=== PATIENT | male | born 1995 | race African-American/Black ===

== ENCOUNTER 2018-06-01 23:34 | Emergency (ER) | payer SELFPAY ==
--- NOTE | 2018-06-02 00:56 | ED ---
Dizziness - HPI Summary HPI Summary: 22 year old M presenting to [facility] with a chief complaint of dizziness since yesterday evening. Symptoms aggravated by nothing. Symptoms alleviated by nothing. Patient reports blurred vision and lightheadedness. Patient denies chest pain. He also notes shortness of breath and chest palpitations earlier that has since resolved. He additionally complains of hypertension, headache with pain the back of his eyes since four days ago. Patient has hx ADHD. He was recently prescribed Concerta. At his last visit to his psychiatrist's office, psychiatrist noted patient had hypertension. He was instructed to follow up with [facility]. At his follow-up appointment, [facility] nurse gave patient a blood pressure cuff to monitor his blood pressure. He has been monitoring his blood pressure every day this past week. He saw his psychiatrist yesterday, but psychiatrist did not change his medication dosages. - History Of Current Complaint Chief Complaint: EDDizziness Stated Complaint: LIGHT HEADED/NAUSEOUS/POSS HBP Time Seen by Provider: 06/02/18 00:41 Hx Obtained From: Patient Onset/Duration: Still Present, Suddenly Timing: Constant Aggravating Factor(s): Nothing Alleviating Factor(s): Nothing Associated Signs And Symptoms: Positive: Other:. Negative: Chest Pain - shortness of breath and chest palpitations earlier that has since resolved. He additionally complains of hypertension, headache with pain the back of his eyes since four days ago. - Allergies/Home Medications Allergies/Adverse Reactions: Allergies Allergy/AdvReac Type Severity Reaction Status Date / Time No Known Allergies Allergy Verified 06/01/18 23:42 Home Medications: Home Medications Methylphenidate HCl [Concerta] 27 mg PO DAILY 06/02/18 [History Confirmed ] PMH/Surg Hx/FS Hx/Imm Hx Previously Healthy: No Endocrine/Hematology History: Denies: Hx Diabetes Cardiovascular History: Denies: Hx Hypertension Psychiatric History: Reports: Hx Attention Deficit Hyperactivity Disorder - Surgical History Surgery Procedure, Year, and Place: None Infectious Disease History: No Infectious Disease History: Denies: Traveled Outside the [place] in Last 30 Days - Family History Known Family History: Positive: Hypertension, Other - grandfather passed from stroke at 35 y/o - Social History Alcohol Use: None Hx Substance Use: No Substance Use Type: Reports: None Hx Tobacco Use: No Smoking Status (MU): Never Smoked Tobacco Review of Systems Positive: Other - HTN Positive: Palpitations - since resolved. Negative: Chest Pain Positive: Shortness Of Breath - since resolved Neurological: Other - Dizziness, lightheadedness Positive: Headache - with pain in back of his eyes All Other Systems Reviewed And Are Negative: Yes Physical Exam - Summary Physical Exam Summary: GENERAL: Patient is a well-developed and nourished M who is lying comfortable in the stretcher. Patient is not in any acute respiratory distress. HEAD AND FACE: Normocephalic EYES: PERRLA, EOMI x 2. EARS: Hearing grossly intact. MOUTH: Oropharynx within normal limits. NECK: Supple, trachea is midline, no adenopathy, no JVD, no carotid bruit. CHEST: Symmetric, no tenderness at palpation LUNGS: Clear to auscultation bilaterally. No wheezing or crackles. CVS: Regular rate and rhythm, S1 and S2 present, no murmurs or gallops appreciated. ABDOMEN: Soft, non-tender. Bowel sounds are normal. No abdominal abnormal pulsations. EXTREMITIES: Full ROM in all major joints, no edema, no cyanosis or clubbing. NEURO: Alert and oriented x 3. No acute neurological deficits. Speech is normal and follows commands. Cranial nerves II-XII grossly intact, no dysmetria finger to nose, nml heel to mello SKIN: Dry and warm Triage Information Reviewed: Yes Vital Signs On Initial Exam: Initial Vitals Temp Pulse Resp BP Pulse Ox 97.5 F 96 16 162/73 97 06/01/18 23:38 06/01/18 23:38 06/01/18 23:38 06/01/18 23:38 06/01/18 23:38 Vital Signs Reviewed: Yes Diagnostics - Vital Signs Vital Signs Temp Pulse Resp BP Pulse Ox 06/02/18 00:34 68 97 06/02/18 00:33 82 162/99 98 06/01/18 23:38 97.5 F 96 16 162/73 97 - Laboratory Result Diagrams: 06/02/18 01:34 06/02/18 01:34 Lab Statement: Any lab studies that have been ordered have been reviewed, and results considered in the medical decision making process. - Radiology CXR Radiology Interpretation Completed By: ED Physician - No acute process. Pending official report. - CT Brain CT Interpretation Completed By: Radiologist - No acute findings. ED physician has reviewed this report. - EKG 0115 Cardiac Rate: NL - 60 BPM EKG Rhythm: Sinus Rhythm EKG Interpretation: Minimal ST elevations seen in lateral leads. 0135 Cardiac Rate: Tachycardia - 105 BPM EKG Rhythm: Sinus Tachycardia EKG Interpretation: Inverted T waves seen in inferior leads 0425 Cardiac Rate: NL - 62 BPM EKG Rhythm: Sinus Rhythm EKG Interpretation: Some ST elevation, most likely KILLIAN Re-Evaluation - Re-Evaluation First Eval Re-Evaluation Time: 04:30 Comment: Patient's headache and eye pressure have gone away Dizzy Course/Dx - Course Course Of Treatment: 22 year old M presenting to [facility] with a chief complaint of dizziness and blurred vision since yesterday evening. Patient was found with elevated blood pressure upon physical exam. CT Brain was normal. Bloodwork including 2 troponins were normal. Patient's first EKG showed minimal ST elevation, most likely secondary to KILLIAN. Consulted with Dr. Walters, cardiology , who said that patient's EKG is not concerning. Patient was given amlodipine with subsquent improvement of blood pressure and resolution of symptoms of blurry vision and headache. Given that patient has been monitoring blood pressure with BP cuff at home with persistent elevation of blood pressure, the decision was made to start him on amlodipine. He was instructed to continue monitoring BP to see if amlodipine is indicated and until seen by PCP. He was given instructions on how to set up a PCP. The patient will be discharged. The patient reports feeling better. The patient is hemodynamically stable and safe for discharge. Strict return precautions given and the patient will otherwise follow up with PCP. - Diagnoses Provider Diagnoses: Dizziness, Hypertension - Provider Notifications Discussed Care Of Patient With: Amara Walters Time Discussed With Above Provider: 01:35 Instructed by Provider To: Other - Dr. Walters, cardiology, agrees to take a look at patient's EKG. She calls back at 01:40 stating that it could be early pericarditis. Discharge - Sign-Out/Discharge Documenting (check all that apply): Patient Departure - Discharge - Discharge Plan Condition: Stable Disposition: HOME Prescriptions: amLODIPine TAB* [Norvasc 5 mg TAB*] 5 mg PO DAILY #30 tab Patient Education Materials: Chest Pain (ED), Hypertension (ED), Dizziness (ED) Referrals: [facility] PHYSICIAN REFERRAL [Outside] - 3 Days Additional Instructions: Follow up with a primary care provider in 1-3 days. RETURN TO THE EMERGENCY DEPARTMENT FOR NEW OR WORSENING SYMPTOMS. - Billing Disposition and Condition Condition: STABLE Disposition: Home - Attestation Statements Document Initiated by Logane: Yes Documenting Scribe: Amara Jones Provider For Whom Lexi is Documenting (Include Credential): Jonh Garza MD Scribe Attestation: IAmara, scribed for Jonh Garza MD on 06/03/18 at 0317. Scribe Documentation Reviewed: Yes Provider Attestation: The documentation as recorded by the Amara blackwell accurately reflects the service I personally performed and the decisions made by me, Jonh Garza MD
[2018-06-02] MEDS ORDERED: amLODIPine TAB* 5 MG PO ONE (01:16)
[2018-06-02 01:40] LABS: ABS Basophils 0 10^3/ul (0-0.2); ABS Eosinophils 0 10^3/ul (0-0.6); ABS Lymphocytes 1.8 10^3/ul (1.0-4.8); ABS Monocytes 0.4 10^3/ul (0-0.8); ABS Neutrophils 6.5 10^3/ul (1.5-7.7); ABS Nucleated RBC 0 10^3/ul; Eosinophil % 0.3 % (0-6); Hematocrit 50 % (42-52); Hemoglobin 16.7 g/dl (14.0-18.0); Lymphocyte % 20.2 % (25-47); Mean Corpuscular HGB Conc 34 g/dl (31-36); Mean Corpuscular Hemoglobin 27 pg (27-31); Mean Corpuscular Volume 82 fL (80-94); Mean Platelet Volume 9.1 um3 (7.4-10.4); Nucleated Red Blood Cells % 0; Platelet Count 176 10^3/ul (150-450); Red Blood Count 6.12 10^6/ul (4.00-5.40); Red Cell Distribution Width 14 % (10.5-15); White Blood Count 8.7 10^3/ul (3.5-10.8)
[2018-06-02 01:57] LABS: EGFR Non-African American 89.3 (>60)
--- NOTE | 2018-06-02 02:00 | RAD ---
EXAM: CT Head Without Intravenous Contrast EXAM DATE/TIME: 06/02/2018 1:53 AM CLINICAL HISTORY: 22 years old, male; Signs and symptoms; Dizziness; Additional info: Headache with HTN TECHNIQUE: Axial computed tomography images of the head/brain without intravenous contrast. All CT scans at this facility use at least one of these dose optimization techniques: automated exposure control; mA and/or kV adjustment per patient size (includes targeted exams where dose is matched to clinical indication); or iterative reconstruction. COMPARISON: No relevant prior studies available. FINDINGS: Brain: Normal. No hemorrhage. No significant white matter disease. No edema. Ventricles: Normal. No ventriculomegaly. Bones/joints: Normal. No acute fracture. Sinuses: Normal as visualized. No acute sinusitis. Mastoid air cells: Normal as visualized. No mastoid effusion. Soft tissues: Normal. IMPRESSION: No acute findings. To contact [facility] with a general question: [facility] - [phone] For direct physician to physician contact: Physician Hotline - [phone] [facility] ([facility] Facility ID #[id number])
[2018-06-02 05:40] VITALS: BP 146/68
--- NOTE | 2018-06-02 07:53 | RAD ---
HISTORY: CP COMPARISONS: None VIEWS: 3: frontal dual-energy view of the chest FINDINGS: CARDIOMEDIASTINAL SILHOUETTE: The cardiomediastinal silhouette is normal. MONICA: The monica are normal. PLEURA: The costophrenic angles are sharp. No pleural abnormalities are noted. LUNG PARENCHYMA: The lungs are clear. ABDOMEN: The upper abdomen is clear. There is no subphrenic gas. BONES AND SOFT TISSUES: No bone or soft tissue abnormalities are noted. OTHER: None. IMPRESSION: NO ACTIVE CARDIOPULMONARY DISEASE. R0
== END 2018-06-02 05:41 | disposition home or self-care (01) ==
LOC: ED 23:34
DX: R42 Dizziness and giddiness (principal); I10 Essential (primary) hypertension; R00.2 Palpitations; R06.02 Shortness of breath; R51 Headache
CPT/HCPCS: 36415; 70450; 71045; 80053; 84484; 85025; 85379; 85652; 86141; 93005; 99284; A9270-GY

== ENCOUNTER 2018-09-03 17:20 | Emergency (ER) | payer OTHER ==
[2018-09-03 18:09] LABS: ABS Basophils 0 10^3/ul (0-0.2); ABS Eosinophils 0.1 10^3/ul (0-0.6); ABS Lymphocytes 1.5 10^3/ul (1.0-4.8); ABS Monocytes 0.4 10^3/ul (0-0.8); ABS Neutrophils 5.2 10^3/ul (1.5-7.7); ABS Nucleated RBC 0 10^3/ul; Hematocrit 48 % (42-52); Hemoglobin 15.7 g/dl (14.0-18.0); Lymphocyte % 20.6 %; Mean Corpuscular HGB Conc 33 g/dl (31-36); Mean Corpuscular Hemoglobin 27 pg (27-31); Mean Corpuscular Volume 82 fL (80-94); Mean Platelet Volume 8.8 fL (7.4-10.4); Nucleated Red Blood Cells % 0; Platelet Count 156 10^3/ul (150-450); Red Blood Count 5.84 10^6/ul (4.00-5.40); Red Cell Distribution Width 14 % (10.5-15); White Blood Count 7.2 10^3/ul (3.5-10.8)
--- NOTE | 2018-09-03 18:12 | ED ---
Lower Extremity - HPI Summary HPI Summary: 23-year-old male presents with left calf pain for past couple days. He states he just flew back from [place]. He states the pain is worse when he ambulates. No injury. No chest pain or shortness breath. No palpitations. He is not a smoker. He his grandmother did have PE. No history of factor V that he knows of. No recent surgeries. He has no medical conditions. - History of Current Complaint Chief Complaint: EDExtremityLower Stated Complaint: LEFT CALF PAIN Time Seen by Provider: 09/03/18 17:30 Pain Intensity: 4 - Allergies/Home Medications Allergies/Adverse Reactions: Allergies Allergy/AdvReac Type Severity Reaction Status Date / Time No Known Allergies Allergy Verified 09/03/18 17:30 PMH/Surg Hx/FS Hx/Imm Hx Endocrine/Hematology History: Denies: Hx Diabetes Cardiovascular History: Denies: Hx Hypertension Psychiatric History: Reports: Hx Attention Deficit Hyperactivity Disorder - Surgical History Surgery Procedure, Year, and Place: None Infectious Disease History: No Infectious Disease History: Denies: Traveled Outside the [place] in Last 30 Days - Family History Known Family History: Positive: Hypertension, Blood Disorder, Other - grandfather passed from stroke at 35 y/o - Social History Alcohol Use: None Hx Substance Use: No Substance Use Type: Reports: None Hx Tobacco Use: No Smoking Status (MU): Never Smoked Tobacco Review of Systems Negative: Fever Negative: Chest Pain Negative: Shortness Of Breath Positive: Myalgia - left calf pain All Other Systems Reviewed And Are Negative: Yes Physical Exam Triage Information Reviewed: Yes Vital Signs On Initial Exam: Initial Vitals Temp Pulse Resp BP Pulse Ox 97.7 F 75 17 146/96 99 09/03/18 17:27 09/03/18 17:27 09/03/18 17:27 09/03/18 17:27 09/03/18 17:27 Vital Signs Reviewed: Yes Appearance: Positive: Well-Appearing Skin: Positive: Warm, Dry Head/Face: Positive: Normal Head/Face Inspection Eyes: Positive: Normal, Conjunctiva Clear ENT: Positive: Pharynx normal Respiratory/Lung Sounds: Positive: Clear to Auscultation, Breath Sounds Present Cardiovascular: Positive: Normal, RRR Musculoskeletal: Positive: Strength/ROM Intact - left calf pain, Other - tenderness left calf, good pulses, capillary refill<2 secs. Negative: Yumiko Sign Left, Edema Left Diagnostics - Vital Signs Vital Signs Temp Pulse Resp BP Pulse Ox 09/03/18 17:27 97.7 F 75 17 146/96 99 - Laboratory Lab Results: Lab Results 09/03/18 Range/Units 17:06 WBC 7.2 (3.5-10.8) 10^3/ul RBC 5.84 H (4.00-5.40) 10^6/ul Hgb 15.7 (14.0-18.0) g/dl Hct 48 (42-52) % MCV 82 (80-94) fL MCH 27 (27-31) pg MCHC 33 (31-36) g/dl RDW 14 (10.5-15) % Plt Count 156 (150-450) 10^3/ul MPV 8.8 (7.4-10.4) fL Neut % (Auto) 72.6 % Lymph % (Auto) 20.6 % Morrison % (Auto) 5.5 % Eos % (Auto) 1.0 % Baso % (Auto) 0.3 % Absolute Neuts (auto) 5.2 (1.5-7.7) 10^3/ul Absolute Lymphs (auto) 1.5 (1.0-4.8) 10^3/ul Absolute Monos (auto) 0.4 (0-0.8) 10^3/ul Absolute Eos (auto) 0.1 (0-0.6) 10^3/ul Absolute Basos (auto) 0 (0-0.2) 10^3/ul Absolute Nucleated RBC 0 10^3/ul Nucleated RBC % 0 Result Diagrams: 09/03/18 17:06 09/03/18 17:06 Lab Statement: Any lab studies that have been ordered have been reviewed, and results considered in the medical decision making process. - Ultrasound No standard instances Ultrasound Interpretation Completed By: Radiologist Summary of Ultrasound Findings: IMPRESSION: No left lower extremity deep vein thrombosis. Lower Extremity Course/Dx - Course Course Of Treatment: 23-year-old male presents with left calf pain for past couple days. He states he just flew back from [place]. He states the pain is worse when he ambulates. No injury. No chest pain or shortness breath. On exam tenderness over left calf. Neurovascularly intact. Ultrasound shows no dvt. discussed likely musclar. told to stretch and can take ibuprofen. patient understand and agrees with plan. - Diagnoses Differential Diagnosis/HQI/PQRI: Positive: Dislocation, Sprain, Strain Provider Diagnoses: Pain of left calf Discharge - Sign-Out/Discharge Documenting (check all that apply): Patient Departure - Discharge Plan Condition: Good Disposition: HOME Patient Education Materials: Leg Pain (ED) Referrals: No Primary Care Phys,NOPCP [Primary Care Provider] - Additional Instructions: follow up with [facility] as needed Ice stretch Take Tylenol or ibuprofen as needed for pain Return to ED if develop any new or worsening symptoms - Billing Disposition and Condition Condition: GOOD Disposition: Home
[2018-09-03 18:17] LABS: INR 1.02 (0.77-1.02)
[2018-09-03 18:28] LABS: Albumin 4.5 g/dL (3.2-5.2); Albumin/Globulin Ratio 1.7 (1-3); BUN/Creatinine Ratio 12.4 (8-20); Calcium 9.5 mg/dL (8.6-10.3); EGFR Non-African American 95.9 (>60); Globulin 2.7 g/dL (2-4); Total Bilirubin 0.3 mg/dL (0.2-1.0); Total Protein 7.2 g/dL (6.4-8.9)
[2018-09-03 19:17] LABS: Potassium 3.8 mmol/L (3.5-5.0)
[2018-09-03 19:35] VITALS: BP 118/63
== END 2018-09-03 19:34 | disposition home or self-care (01) ==
LOC: ED 17:20
DX: M79.662 Pain in left lower leg (principal)
CPT/HCPCS: 36415; 80053; 85025; 85610; 99282

== ENCOUNTER 2019-08-25 18:29 | Emergency (ER) | payer OTHER ==
--- NOTE | 2019-08-25 20:37 | ED ---
GI/ HPI - HPI Summary HPI Summary: 24-year-old male presents with dizziness shortness breath for the past hours. He states he just feels off. dizziness does not increase when he sits up. Has not passed out. Denies any chest pain. No cough. Denies any recent illness. He states that he has an uncomfortable feeling in his abdomen. He states it feels kind of a crampy. "States been having this weird pulsing sensation in my bowels." pain is intermittent. never had this before. Doesn't change with bowel movement. He states he does feel like he is constipated. He states he did have 1 episode of rectal bleeding yesterday. He states he had normal bowel movement today without bleeding. He has no medical conditions. - History of Current Complaint Chief Complaint: EDRectalPain Time Seen by Provider: 08/25/19 20:19 Stated Complaint: SOB/DIZZINESS PER PT Pain Intensity: 2 - Allergy/Home Medications Allergies/Adverse Reactions: Allergies Allergy/AdvReac Type Severity Reaction Status Date / Time No Known Allergies Allergy Verified 08/25/19 18:33 PMH/Surg Hx/FS Hx/Imm Hx Endocrine/Hematology History: Denies: Hx Diabetes Cardiovascular History: Denies: Hx Hypertension Psychiatric History: Reports: Hx Attention Deficit Hyperactivity Disorder - Surgical History Surgery Procedure, Year, and Place: None Infectious Disease History: No Infectious Disease History: Denies: Traveled Outside the [place] in Last 30 Days - Family History Known Family History: Positive: Hypertension, Blood Disorder, Other - grandfather passed from stroke at 35 y/o - Social History Alcohol Use: Weekly Hx Substance Use: No Substance Use Type: Reports: Marijuana Hx Tobacco Use: No Smoking Status (MU): Never Smoked Tobacco Review of Systems Negative: Fever Negative: Chest Pain Positive: Shortness Of Breath Positive: Abdominal Pain. Negative: Vomiting, Diarrhea, Nausea Neurological: Other - dizziness All Other Systems Reviewed And Are Negative: Yes Physical Exam Triage Information Reviewed: Yes Vital Signs On Initial Exam: Initial Vitals Temp Pulse Resp BP Pulse Ox 98.1 F 84 19 162/98 99 08/25/19 18:30 08/25/19 18:30 08/25/19 18:30 08/25/19 18:30 08/25/19 18:30 Vital Signs Reviewed: Yes Appearance: Positive: Well-Appearing Skin: Positive: Warm, Dry Head/Face: Positive: Normal Head/Face Inspection Eyes: Positive: Normal, EOMI, BETH, Conjunctiva Clear ENT: Positive: Normal ENT inspection, Pharynx normal, TMs normal Respiratory/Lung Sounds: Positive: Clear to Auscultation, Breath Sounds Present Cardiovascular: Positive: Normal, RRR Abdomen Description: Positive: Nontender, Soft Bowel Sounds: Positive: Present Musculoskeletal: Positive: Normal Neurological: Positive: Sensory/Motor Intact, Alert, Oriented to Person Place, Time, CN Intact II-III, Finger to Nose Psychiatric: Positive: Normal Procedures - Sedation Patient Received Moderate/Deep Sedation with Procedure: No Diagnostics - Vital Signs Vital Signs Temp Pulse Resp BP Pulse Ox 08/25/19 18:30 98.1 F 84 19 162/98 99 - Laboratory Result Diagrams: 08/25/19 20:51 08/25/19 20:51 Lab Statement: Any lab studies that have been ordered have been reviewed, and results considered in the medical decision making process. - Radiology chest Radiology Interpretation Completed By: ED Physician Summary of Radiographic Findings: no active disease - EKG No standard instances Cardiac Rate: NL EKG Rhythm: Sinus Rhythm EKG Comparison: No Significant Change Summary of EKG Findings: sinus rhythm Re-Evaluation - Re-Evaluation First Eval Re-Evaluation Time: 21:48 Change: Improved Comment: feeling better, no hemorrhoids seen on rectal exam GIGU Course/Dx - Course Course Of Treatment: 24-year-old male presents with dizziness shortness breath for the past hours. He states he just feels off. dizziness does not increase when he sits up. Has not passed out. Denies any chest pain. No cough. Denies any recent illness. He states that he has an uncomfortable feeling in his abdomen. He states it feels kind of a crampy. "States been having this weird pulsing sensation in my bowels." pain is intermittent. never had this before. Doesn't change with bowel movement. He states he does feel like he is constipated. He states he did have 1 episode of rectal bleeding yesterday. He states he had normal bowel movement today without bleeding. He has no medical conditions. On exam nontender abdomen. lab work wnl. no hemorrhoids seen on rectal exam. ekg sinus rhythm, chest xray normal. sob and dizziness have improved with no intervention. likely anxiety component to it. will place on miralax for potential constipation. told follow up with [facility]. patient understand and agrees with plan. - Diagnoses Differential Diagnoses - Male: Constipation, Gastroenteritis (Viral), Urinary Tract Infection Provider Diagnoses: Abdominal pain, Shortness of breath, Dizziness Discharge ED - Sign-Out/Discharge Documenting (check all that apply): Patient Departure - Discharge Plan Condition: Good Disposition: HOME Prescriptions: Polyethylene Glycol 3350* [Miralax*] 17 gm PO DAILY #7 packet Patient Education Materials: Dizziness (ED) Referrals: Drea Barrientos DO [Primary Care Provider] - Additional Instructions: take miralax packet in 8 ounce of liquid daily increase fiber intake drink fluids as tolerated Take Tylenol every 6 hours as needed for pain follow up with [facility] within 5 days Return to ED if develop any new or worsening symptoms - Billing Disposition and Condition Condition: GOOD Disposition: Home
[2019-08-25 21:04] LABS: ABS Lymphocytes 1.5 10^3/ul (1.0-4.8); ABS Monocytes 0.3 10^3/ul (0-0.8); ABS Neutrophils 5.4 10^3/ul (1.5-7.7); Eosinophil % 0.5 %; Hematocrit 47 % (42-52); Lymphocyte % 20.4 %; Mean Corpuscular HGB Conc 35 g/dL (31-36); Mean Corpuscular Hemoglobin 28 pg (27-31); Mean Corpuscular Volume 81 fL (80-94); Mean Platelet Volume 8.6 fL (7.4-10.4); Platelet Count 177 10^3/uL (150-450); Red Blood Count 5.76 10^6 /uL (4.18-5.48); Red Cell Distribution Width 14 % (10-15); White Blood Count 7.3 10^3/uL (3.5-10.8)
[2019-08-25 21:23] LABS: Troponin I 0.01 ng/mL (<0.03)
[2019-08-25 21:29] LABS: Albumin 4.5 g/dL (3.2-5.2); Albumin/Globulin Ratio 1.7 (1-3); BUN/Creatinine Ratio 14.7 (8-20); C Reactive Protein 2.08 mg/L (<8.01); Calcium 9.7 mg/dL (8.6-10.3); EGFR African American 117.9 (>60); EGFR Non-African American 97.4 (>60); Globulin 2.7 g/dL (2-4); Magnesium 1.8 mg/dL (1.9-2.7); Potassium 3.7 mmol/L (3.5-5.0); Total Bilirubin 0.4 mg/dL (0.2-1.0); Total Protein 7.2 g/dL (6.4-8.9)
[2019-08-25 21:58] LABS: TSH (Thyroid Stimulating Horm) 2.08 mcIU/mL (0.34-5.60)
[2019-08-25 22:01] VITALS: BP 147/85
[2019-08-25 22:22] LABS: HIV 4th Generation Nonreactive (Nonreactive)
== END 2019-08-25 21:52 | disposition home or self-care (01) ==
LOC: ED 18:29
DX: R06.02 Shortness of breath (principal); R42 Dizziness and giddiness; R10.9 Unspecified abdominal pain; F90.9 Attention-deficit hyperactivity disorder, unspecified type
CPT/HCPCS: 36415; 71045; 80053; 83605; 83735; 84443; 84484; 85025; 86140; 87389; 93005; 99282